=== PATIENT | female | born 1955 | race Caucasian/White ===

== ENCOUNTER 2023-01-21 07:10 | Emergency (ER) | payer MEDICARE, OTHER ==
[~2023-01-21] VITALS: Ht 162.6 cm; Wt 87.6 kg
--- OUTSIDE RECORDS SUMMARY | ~2023-01-21 | XMS | Continuity of Care Document ---
Demographics + + + | Address | [address] | | | [place] [address] | + + + | Preferred Language | Unknown | + + + | Marital Status | | + + + | Spiritism Affiliation | Unknown | + + + | Race | White | + + + | Ethnic Group | Not or | + + + Author + + + | Author | [facility] | + + + | Organization | [facility] | + + + | Address | [address] | | | [place] [address] | + + + | Phone | | + + + Care Team Providers + + + + | Care Reclamation Kettle Tender Name | Role | Phone | + + + + Unavailable | Unavailable | + + + + Unavailable | Unavailable | + + + + Allergies and Intolerances + + + + + + | date | description | facility | reaction | severity | + + + + + + | (no date) | Latex | [facility] | (no reaction) | (no severity) | [facility] | | | + + + + + + | (no date) | Latex | [facility] | (no reaction) | (no severity) | [facility] | | | + + + + + + | (no date) | Latex | [facility] | (no reaction) | (no severity) | | [facility] | | | + + + + + + | (no date) | latex | [facility] | (no reaction) | (no severity) | + + + + + + | (no date) | Latex | [facility] | (no reaction) | (no severity) | | [facility] | | | + + + + + + Encounters No information. Functional Status No information. Immunizations No information. Medications + + + + | date | description | facility | + + + + | 2023-01-19 00:00 | ASPIRIN | [facility] | + + + + | 2023-01-19 00:00 | ASCORBIC ACID | [facility] | + + + + | 2023-01-19 00:00 | CALCIUM CARBONATE | [facility] | + + + + | 2023-01-19 00:00 | Ezetimibe | [facility] | + + + + | 2023-01-19 00:00 | ACEBUTOLOL HCL | [facility] | + + + + Problems + + + + | date | description | facility | + + + + | 2022-12-09 10:22 | ENCNTR SCREEN MAMMOGRAM | [facility] | | | FOR MALIGNANT NEOPLASM OF | | | | BREAST | | + + + + | 2023-01-19 00:00 | Paroxysmal atrial | [facility] | | | fibrillation | | + + + + | 2023-01-19 10:46 | SUPRAVENTRICULAR | [facility] | | | TACHYCARDIA | | + + + + | 2023-01-19 11:00 | SUPRAVENTRICULAR | [facility] | | | TACHYCARDIA | | + + + + Procedures No information. Results/Labs +--------+--------+ +---------+--------+---------+ | test | date | facility | value | unit | notes | +--------+--------+ +---------+--------+---------+ + + | Result panel 1 | + + + + + +-------+ + + | | 2023-01-19 | [facility] | 6.5 | (missing) | (missing) | | (unavailable | [facility] | | | + + + +-------+ + + + + | Result panel 2 | + + + + + +--------+ + + | | 2023-01-19 | [facility] | 60.6 | (missing) | (missing) | | (unavailable [facility] | | | | + + + +--------+ + + + + | Result panel 3 | + + + + + +--------+ + + | | 2023-01-19 | [facility] | 27.1 | (missing) | (missing) | | (unavailable [facility] | | | | + + + +--------+ + + + + | Result panel 4 | + + + + + +-------+ + + | | 2023-01-19 | [facility] | 7.9 | (missing) | (missing) | | (unavailable | [facility] | | | + + + +-------+ + + + + | Result panel 5 | + + + + + +-------+ + + | | 2023-01-19 | [facility] | 3.5 | (missing) | (missing) | | (unavailable [facility] | | | + + + +-------+ + + + + | Result panel 6 | + + + + + +-------+ + + | | 2023-01-19 | [facility] | 0.9 | (missing) | (missing) | | (unavailable | [facility] | | | + + + +-------+ + + + + | Result panel 7 | + + + + + +-------+---------+ + | | 2023-01-19 | [facility] | 100 | mg/dL | (missing) | | (unavailable [facility] | | | + + + +-------+---------+ + + + | Result panel 8 | + + + + + +------+---------+ + | | 2023-01-19 | [facility] | 15 | mg/dL | (missing) | | (unavailable | [facility] | | | | + + + +------+---------+ + + + | Result panel 9 | + + + + + +--------+---------+ + | | 2023-01-19 | [facility] | 0.77 | mg/dL | (missing) | | (unavailable [facility] | | | + + + +--------+---------+ + + + | Result panel 10 | + + + + + +------+ + + | | 2023-01-19 | [facility] | 83 | (missing) | (missing) | | (unavailable [facility] | | | + + + +------+ + + + + | Result panel 11 | + + + + + +---------+ + + | | 2023-01-19 | [facility] | 19.48 | (missing) | (missing) | | (unavailable [facility] | | | + + + +---------+ + + + + | Result panel 12 | + + + + + +--------+ + + | | 2023-01-19 | [facility] | 4.49 | (missing) | (missing) | | (unavailable [facility] | | | + + + +--------+ + + + + | Result panel 13 | + + + + + +-------+ + + | | 2023-01-19 | [facility] | 135 | (missing) | (missing) | | (unavailable | [facility] | | | | + + + +-------+ + + + + | Result panel 14 | + + + + + +-------+ + + | | 2023-01-19 | [facility] | 3.6 | (missing) | (missing) | | (unavailable [facility] | | | + + + +-------+ + + + + | Result panel 15 | + + + + + +-------+ + + | | 2023-01-19 | [facility] | 102 | (missing) | (missing) | | (unavailable | [facility] | | | | + + + +-------+ + + + + | Result panel 16 | + + + + + +------+ + + | | 2023-01-19 | [facility] | 27 | (missing) | (missing) | | (unavailable | [facility] | | | + + + +------+ + + + + | Result panel 17 | + + + + + +-------+ + + | | 2023-01-19 | [facility] | 9.6 | (missing) | (missing) | | (unavailable | [facility] | | | + + + +-------+ + + + + | Result panel 18 | + + + + + +-------+---------+ + | | 2023-01-19 | [facility] | 9.3 | mg/dL | (missing) | | (unavailable | [facility] | | | + + + +-------+---------+ + + + | Result panel 19 | + + + + + +-------+---------+ + | | 2023-01-19 | [facility] | 2.1 | mg/dL | (missing) | | (unavailable | [facility] | | | | + + + +-------+---------+ + + + | Result panel 20 | + + + + + +-------+ + + | | 2023-01-19 | [facility] | 7.4 | (missing) | (missing) | | (unavailable | [facility] | | | + + + +-------+ + + + + | Result panel 21 | + + + + + +-------+ + + | | 2023-01-19 | [facility] | 3.5 | (missing) | (missing) | | (unavailable | [facility] | | | | + + + +-------+ + + + + | Result panel 22 | + + + + + +-------+ + + | | 2023-01-19 | [facility] | 3.9 | (missing) | (missing) | | (unavailable | [facility] | | | + + + +-------+ + + + + | Result panel 23 | + + + + + +--------+ + + | | 2023-01-19 | [facility] | 14.1 | (missing) | (missing) | | (unavailable | [facility] | | | + + + +--------+ + + + + | Result panel 24 | + + + + + +--------+ + + | | 2023-01-19 | [facility] | 0.90 | (missing) | (missing) | | (unavailable | [facility] | | | + + + +--------+ + + + + | Result panel 25 | + + + + + +-------+ + + | | 2023-01-19 | [facility] | 0.4 | (missing) | (missing) | | (unavailable | [facility] | | | + + + +-------+ + + + + | Result panel 26 | + + + + + +------+ + + | | 2023-01-19 | [facility] | 30 | (missing) | (missing) | | (unavailable | [facility] | | | + + + +------+ + + + + | Result panel 27 | + + + + + +------+ + + | | 2023-01-19 | [facility] | 35 | (missing) | (missing) | | (unavailable | [facility] | | | | + + + +------+ + + + + | Result panel 28 | + + + + + +------+ + + | | 2023-01-19 | [facility] | 60 | (missing) | (missing) | | (unavailable | [facility] | | | + + + +------+ + + + + | Result panel 29 | + + + + + +-------+ + + | | 2023-01-19 | [facility] | 5.6 | (missing) | (missing) | | (unavailable | [facility] | | | + + + +-------+ + + + + | Result panel 30 | + + + + + +---------+ + + | | 2023-01-19 | [facility] | 4.033 | (missing) | (missing) | | (unavailable | [facility] | | | | + + + +---------+ + + + + | Result panel 31 | + + + + + +--------+ + + | | 2023-01-19 | [facility] | 42.0 | (missing) | (missing) | | (unavailable | [facility] | | | | + + + +--------+ + + + + | Result panel 32 | + + + + + +--------+ + + | | 2023-01-19 | [facility] | 93.4 | (missing) | (missing) | | (unavailable | [facility] | | | + + + +--------+ + + + + | Result panel 33 | + + + + + +--------+ + + | | 2023-01-19 | [facility] | 31.3 | (missing) | (missing) | | (unavailable | 13: [facility] | | | | + + + +--------+ + + + + | Result panel 34 | + + + + + +--------+ + + | | 2023-01-19 | [facility] | 33.5 | (missing) | (missing) | | (unavailable | [facility] | | | | + + + +--------+ + + + + | Result panel 35 | + + + + + +--------+ + + | | 2023-01-19 | [facility] | 13.1 | (missing) | (missing) | | (unavailable | [facility] | | | | + + + +--------+ + + + + | Result panel 36 | + + + + + +-------+ + + | | 2023-01-19 | [facility] | 216 | (missing) | (missing) | | (unavailable [facility] | | | + + + +-------+ + + Social History No information. Vital Signs + + + +---------+ | date | measurement | value | units | + + + +---------+ | 2023-01-19 00:00 | BMI | 32.6 | kg/m2 | + + + +---------+ | 2023-01-19 00:00 | BP_diastolic | 78 | mmHg | + + + +---------+ | 2023-01-19 00:00 | BP_systolic | 145 | mmHg | + + + +---------+ | 2023-01-19 00:00 | heart_rate | 58 | /min | + + + +---------+ | 2023-01-19 00:00 | height_metric | 162.56 | cm | + + + +---------+ | 2023-01-19 00:00 | height_standard | 64 | in | + + + +---------+ | 2023-01-19 00:00 | o2_saturation | 96 | % | + + + +---------+ | 2023-01-19 00:00 | respiration_rate | 20 | /min | + + + +---------+ | 2023-01-19 00:00 | temperature_metric | 36.89 | C | | | | | | + + + +---------+ | 2023-01-19 00:00 | | 98.4 | F | | | temperature_standar | | | | | d | | | + + + +---------+ | 2023-01-19 00:00 | weight_metric | 86.18 | kg | + + + +---------+ | 2023-01-19 00:00 | weight_standard | 189.99 | lb | + + + +---------+ | 2023-01-19 00:00 | weight_standard | 190 | lb | + + + +---------+"
--- OUTSIDE RECORDS SUMMARY | ~2023-01-21 | XMS | Continuity of Care Document ---
Demographics + + + | Address | [address] | | | [place] [address] | + + + | Preferred Language | Unknown | + + + | Marital Status | | + + + | Christian Affiliation | Unknown | + + + | Race | White | + + + | Ethnic Group | Not or | + + + Author + + + | Author | [facility] | + + + | Organization | [facility] | + + + | Address | [address] | | | [place] [address] | + + + | Phone | | + + + Care Team Providers + + + + | Care Night Shift Manager Name | Role | Phone | + [...] + | 2023-01-19 00:00 | ASPIRIN | [facility] | + + + + | 2023-01-19 00:00 | ASCORBIC ACID | [facility] | + + + + | 2023-01-19 00:00 | CALCIUM CARBONATE | [facility] | + + + + | 2023-01-19 00:00 | Ezetimibe | [facility] | + + + + | 2023-01-19 00:00 | ACEBUTOLOL HCL | [facility] | + + + + Problems + + + + | date | description | facility | + + + + | 2022-12-09 10:22 | ENCNTR SCREEN MAMMOGRAM | [facility] | | | FOR MALIGNANT NEOPLASM OF | | | | BREAST | | + + + + | 2023-01-19 00:00 | Paroxysmal atrial | [facility] | | | fibrillation | | + [...]
[~2023-01-21 07:10] MED LIST: ACEBUTOLOL HCL200 MG PO; ASPIRIN EC325 MG PO; B COMPLEX1 EACH PO; CALCIUM500 MG PO; CRESTOR10 MG PO; DAILY VITAMIN1 EAC2 PO; EZETIMIBE10 MG PO; VITAMIN C100 MG PO
--- OUTSIDE RECORDS SUMMARY | 2023-01-21 07:18 | XMS ---
PreManage Notification: KONRAD YIN Security Residential Property Manager Events No recent Security Events currently on file CRITERIA MET - [facility] - 2 Visits in 30 Days CARE PROVIDERS ZINA LO Physician Plastic Molding Operator Current PHONE: [phone] Christiana has no Care Guidelines for this patient. Gaby VISIT COUNT (12 MO.) 2 [facility] TOTAL 2 NOTE: Visits indicate total known visits. ED/UCC VISIT TRACKING (12 MO.) 01/21/2023 07:11 [facility] TYPE: Emergency COMPLAINT: - IRREGULAR HEART RATE 01/19/2023 12:42 [facility] TYPE: Emergency COMPLAINT: - IRREGULAR HEART RATE INPATIENT VISIT TRACKING (12 MO.) No inpatient visits to display in this time frame [email or web address]
[2023-01-21] MEDS ORDERED: ELIQUIS5 MG PO (08:42)
[2023-01-21] MEDS ORDERED: DILTIAZEM 24HR120 MG PO (08:42)
[2023-01-21 08:50] VITALS: BP 120/74
--- NOTE | 2023-01-23 00:15 | EKG ---
[facility] [address] [place] [address] Signed Atrial fibrillation with rapid ventricular response Nonspecific ST and T wave abnormality Abnormal ECG When compared with ECG of 19-JAN-2023 12:43, Atrial fibrillation has replaced Sinus rhythm Vent. rate has increased BY 59 BPM Questionable change in QRS axis Nonspecific T wave abnormality now evident in Inferior leads Nonspecific T wave abnormality now evident in Anterolateral leads Confirmed by Saba Morris MD () on 01/23/2023 12:15:10 AM Electronically Signed By: SABA MORRIS MD 01/23/23 0015 PATIENT NAME: KONRAD YIN Electrocardiogram DATE OF : 51 PHYSICIAN: SABA MORRIS MD REPORT #: [id number] REPORT IS CONFIDENTIAL AND NOT TO BE RELEASED WITHOUT AUTHORIZATION
== END 2023-01-21 08:50 | disposition home or self-care (01) ==
LOC: ED 07:10
DX: I48.91 Unspecified atrial fibrillation (principal); Z91.040 Latex allergy status; Z79.899 Other long term (current) drug therapy; Z79.82 Long term (current) use of aspirin
CPT/HCPCS: 36415; 80053; 83735; 84484; 85025; 93005; 93010; 96374; 99285 25; J7121

== ENCOUNTER 2024-09-23 07:15 | Day surgery (SDC) | payer MEDICARE, OTHER ==
[~2024-09-23] VITALS: Ht 177.8 cm; Wt 104.5 kg
[~2024-09-23 07:15] MED LIST changes: +ALLER-TEC10 MG PO; +CALCIUM 600-VI1 EAC3 PO; +DILTIAZEM 24HR120 MG PO; +ELIQUIS5 MG PO; +FISH OIL 1,001000 MG PO; +FLONASE ALLERG9.9 ML NAS; +IBLOOD GLUCOSE TEST STRIP 1 EA TEST VI PRN; +LACTATED RINGER'S 1,000 ML IV SCH; +LIDOCAINE HCL 1% 5 ML SDV INJ ONE; +LOW DOSE ASPIRI81 MG PO; +METRONIDAZOLE45 G1 TOP; +MIDAZOLAM HCL 5 MG/5 ML VIAL IV PRN; +MSM PO; +TURMERIC500 M2 PO; +VITAMIN C1000 MG PO; +fentaNYL citrate 100 MCG/2 ML VIAL IV PRN
[2024-09-23 07:29] VITALS: BP 130/65
[2024-09-23] MEDS ORDERED: ALLEGRA ALLERG180 MG PO (07:34)
[2024-09-23] MEDS ORDERED: CALCIUM-MAGNES1 EA10 PO (07:35)
[2024-09-23] MEDS ORDERED: MIDAZOLAM HCL 5 MG/5 ML VIAL ONE (08:09)
[2024-09-23] MEDS ORDERED: fentaNYL citrate 100 MCG/2 ML VIAL ONE (08:09)
--- NOTE | 2024-09-23 09:30 | NUR ---
09/23/24 0930 Alannah [facility] 0850- PT PRESENTS TO PACU, SUPINE POSITION, PT DROWSY ON ARRIVAL. DENIES PAIN OR NAUSEA. ABD SOFT, NON DISTENDED, ENCOURAGED TO PASS GAS. BREATHING EVEN AND NON LABORED, O2 AT 3L PER NC. LR INFUSING TO RFA IV. ALL MONITORS IN PLACE. PT REORIENTED TO TIME AND PLACE, ENCOURAGED TO REST.
[2024-09-23 11:34] VITALS: BP 120/64
--- NOTE | 2024-09-23 12:48 | OR ---
[facility] [address] [place], [place] [address] Signed DATE OF OPERATION: 09/23/2024 SURGEON: Leonel Chapman MD PREOPERATIVE DIAGNOSIS: History of persistent rectal bleeding, now resolved. POSTOPERATIVE DIAGNOSES: 1. Internal hemorrhoids. 2. Sigmoid diverticulosis. PROCEDURE: Total colonoscopy to cecum. ANESTHESIA: Intravenous sedation; fentanyl 100 mcg and Versed 5 mg. INDICATION: This 69-year-old white woman is a patient of Jaclyn Delatorre. She suffered significant rectal bleeding for several days on April 01, lasting about four days. She had no associated pain. Her bleeding spontaneously stopped. She last underwent colonoscopy in 2013. The patient has undergone cardiac rhythm ablation in August 2023, one year ago. She is no longer on anticoagulants. She is admitted at this time to undergo colonoscopy in part to assess issues related to her rectal bleeding episode last summer as well as for surveillance as it has been more than 10 years since last colonoscopy. The risk of bleeding, infection, perforation, and so forth were reviewed with her. She understands and wished to proceed. Notably, she has no family history of colon cancer. FINDINGS: The prep was excellent. Complete colonoscopy was undertaken to the cecum. She had internal hemorrhoids, most likely accounting for the bleeding last fall. She had diverticulosis but no sign of polyps or colitis. DESCRIPTION OF PROCEDURE: The patient was brought to the endoscopy suite and placed in lateral decubitus position, given intravenous sedation to the point of slurred speech and nystagmus. Digital rectal examination was normal. An Olympus video colonoscope was passed in the rectum and manipulated throughout the colon ultimately intubating the cecum itself. The ileocecal valve and appendiceal Electronically Signed By: LEONEL CHAPMAN MD 09/23/24 1248 PATIENT NAME: KONRAD YIN OPERATIVE REPORT DATE OF : 51 REPORT #: [id number] PHYSICIAN: LEONEL CHAPMAN MD PCP: JACLYN DELATORRE PA-C REPORT IS CONFIDENTIAL AND NOT TO BE RELEASED WITHOUT AUTHORIZATION [facility] [address], [place] [address] Signed orifice were normal. The scope was withdrawn and careful examination throughout showed no sign of abnormality other than diverticulosis of the sigmoid and on retroflex view significant internal hemorrhoidal changes. Scope was removed. The patient was taken to the recovery room in good condition. CONCLUDING DIAGNOSIS: Rectal bleeding almost certainly related to internal hemorrhoids. Concurrent diverticulosis noted. PLAN: Recommend high-fiber diet or fiber supplement such as Metamucil or Citrucel powder form only. If recurrent bleeding, she should call me promptly for which hemorrhoidal banding would be undertaken. MD DAVID Butterfield/GALINA /[id number] cc: Jaclyn Delatorre PA-C Copies: JACLYN DELATORRE PA-C ~ Electronically Signed By: LEONEL CHAPMAN MD 09/23/24 1248 PATIENT NAME: KONRAD YIN OPERATIVE REPORT DATE OF : 51 REPORT #: [id number] PHYSICIAN: LEONEL CHAPMAN MD PCP: JACLYN DELATORRE PA-C REPORT IS CONFIDENTIAL AND NOT TO BE RELEASED WITHOUT AUTHORIZATION
== END 2024-09-23 09:45 | disposition home or self-care (01) ==
LOC: DS 07:15
PROVIDERS: ATTEND Surgery
PROC: 0DJD8ZZ Inspection of Lower Intestinal Tract, Via Natural or Artificial Opening Endoscopic (ICD-10-PCS; principal; 2024-09-23 08:10)
DX: Z12.11 Encounter for screening for malignant neoplasm of colon (principal); K64.8 Other hemorrhoids; K57.30 Diverticulosis of large intestine without perforation or abscess without bleeding; E78.5 Hyperlipidemia, unspecified; E66.9 Obesity, unspecified; Z68.33 Body mass index [BMI] 33.0-33.9, adult; Z79.82 Long term (current) use of aspirin; Z79.899 Other long term (current) drug therapy; Z91.040 Latex allergy status; Z87.19 Personal history of other diseases of the digestive system; Z90.49 Acquired absence of other specified parts of digestive tract
CPT/HCPCS: 99153; G0500; J2250; J3010